=== PATIENT | female | born 1980 | race African-American/Black ===

== ENCOUNTER 2017-07-12 12:11 | Emergency (ER) | payer MEDICAID ==
[~2017-07-12] VITALS: Ht 157.5 cm; Wt 52.2 kg
[~2017-07-12 12:11] MED LIST: ACETAMINOPHEN-1 EAC1 ORAL; ZOFRAN ODT4 MG ORAL
[2017-07-12] MEDS: Ketorolac 30mg Inj IM ONE ×3 (12:25→12:37)
[2017-07-12] MEDS ORDERED: Methocarbamol 500mg tab ORAL ONE (12:30)
--- NOTE | 2017-07-12 12:30 | Emergency Room Report ---
History of Present Illness General Chief Complaint: Neck Pain Source: Patient Present Illness HPI 37-year-old female patient presents ER brought in by ambulance complaining of neck and shoulder pain. Reports pain began yesterday after waking up "feels like muscle tightness" that increases with turning her head to the left. Reports pain was initially chest in her neck and has moved to her shoulder. Reports has been able to move her arm without difficulty. Reports history of smoking marijuana and cigarettes. Denies past medical history. Denies fever, chest pain, shortness of breath. Jerald has been taking Aleve for pain with mild relief of symptoms. Reports was going to take a muscle relaxant from her boyfriend thought she should get a muscle relaxant from the ER. denies acute injury. Denies history of injury or surgery to the affected area. denies difficulty eating or drinking. Denies sore throat. Allergies: Coded Allergies: No Known Allergies (Unverified , 12/01/15) Patient History Past Medical History: see triage record Last Menstrual Period: 06/21/83 Reviewed Nursing Documentation: PMH: Agreed; PSxH: Agreed Nursing Documentation-PMH Past Medical History: No History, Except For Hx Cardiac Problems: No Hx Cancer: No Hx Neurological Problems: No Review of Systems All Other Systems: negative except mentioned in HPI Physical Exam Vital Signs Date Time Temp Pulse Resp B/P (MAP) Pulse Ox O2 Delivery O2 Flow Rate FiO2 07/12/17 12:05 98.0 107 16 106/74 99 Room Air 98.1 Sp02 EP Interpretation: reviewed, normal General Appearance: well appearing, no apparent distress, alert, GCS 15, non- toxic Head: normocephalic, atraumatic Eyes: bilateral eye normal inspection, bilateral eye PERRL ENT: hearing grossly normal, normal pharynx, no angioedema, normal voice, uvula midline, moist mucus membranes Neck: no bony tend, tender lateral Respiratory: lungs clear, normal breath sounds, no rhonchi, no respiratory distress, no accessory muscle use, no wheezing, speaking full sentences Cardiovascular #1: regular rate, rhythm, no edema Cardiovascular #2: 2+ radial (R), 2+ radial (L) Musculoskeletal: back normal, digits/nails normal, gait/station normal, normal range of motion, non-tender, other - negative Adson, NVI Neurologic: alert, oriented x3, responsive, motor strength/tone normal, sensory intact Psychiatric: mood/affect normal Skin: no rash Medical Decision Making PA Attestation Dr. Gray is my supervising Physician whom patient management has been discussed with. Diagnostic Impression: Primary Impression: Neck pain Additional Impression: Shoulder pain ER Course Pt. presents to the ED c/o neck and shoulder pain. Ddx considered but are not limited to fracture, sprain, strain, contusion, dislocation, muscle spasm, thoracic outlet syndrome. During physical exam patient talking without difficulty, moving her arm, mild movement of neck until patient begins talking about pain and stop moving neck. negative Adson's sign, low suspicion for thoracic outlet. Low suspicion for meningitis. Vital signs: are WNL, pt. is afebrile Ordered X-ray and pain medication. ER COURSE Provided with pain medication. CURES reviewed. An X-ray of the cervical neck was ordered, results show no acute fracture, per the preliminary reading. An X-ray of the right shoulder was ordered, results show no acute fracture, per the preliminary reading. patient observed with normal range of motion while in ER, patient reports able to move but painful to do so. Informed patient likely muscle spasm. Patient has no nuchal rigidity, no focal neuro deficits. Patient eating and drinking normally, talking without difficulty, informed patient may be stress component. Follow-up with PCP for further diagnosis and treatment. Reports pain mildly symptoms improved. Patient instructed on RICE method: rest, ice, compression, elevation. Instructed patient on heat for neck stiffness. Patient instructed to WBAT. Followup with primary care provider for medical clearance to return to activities. Discuss referral to ortho/pain management/PT as needed. Discuss further imaging with MRI/CT as needed. DISCHARGE: -Rx provided for Tylenol for pain symptoms. -Rx provided for Methocarbamol. SE drowsiness, do not drink, drive, or operate heavy machinery while using. -Rx provided for lidocaine patches. At this time pt. is stable for d/c to home. Patient is resting comfortably, in no acute distress, nontoxic appearing, talking without difficulty. Will provide printed patient care instructions, and any necessary prescriptions. Patient instructed to follow with primary care provider in 3 - 5 days and to request further orthopedic follow-up. Care plan and follow up instructions have been discussed with the patient prior to discharge. Take medications as directed. Patient questions asked and answered. Patient reports understanding and agreement to treatment plan. ER precautions given, patient instructed to return to ER immediately for any new or worsening of symptoms. - Please note that this Emergency Department Report was dictated using [employer] sales engineer technology software, occasionally this can lead to erroneous entry secondary to interpretation by the dictation equipment. Other X-Ray Diagnostic Results Other X-Ray Diagnostic Results #1: X-Ray ordered: right shoulder # of Views/Limited Vs Complete: 3 View Indication: Pain EP Interpretation: Yes PA Xray: Interpretation reviewed, by supervising MD, and agrees with findings. Interpretation: no dislocation, no soft tissue swelling, no fractures Impression: No acute disease PA Scribe Text Stewart Basilio PA-C Other X-Ray Diagnostic Results #2: X-Ray ordered: neck # of Views/Limited Vs Complete: 3 View Indication: Pain EP Interpretation: Yes PA Xray: Interpretation reviewed, by supervising MD, and agrees with findings. Interpretation: no dislocation, no soft tissue swelling, no fractures Impression: No acute disease PA Scribe Text Stewart Basilio PA-C Last Vital Signs Date Time Temp Pulse Resp B/P (MAP) Pulse Ox O2 Delivery O2 Flow Rate FiO2 07/12/17 12:05 98.0 107 16 106/74 99 Room Air 98.1 Disposition: HOME, SELF-CARE Condition: Stable Scripts Lidocaine (Lidocaine) 1 Each Adh..patch 700 MG TP DAILY for 7 Days, #7 PATCH Prov: Aquiles Basilio.A. 07/12/17 Acetaminophen* (TYLENOL EXTRA STRENGTH*) 500 Mg Tablet 500 MG ORAL Q8H PRN for Prn Headache/Temp > 101, #30 TAB 0 Refills Prov: Aquiles Basilio.A. 07/12/17 Methocarbamol* (ROBAXIN*) 500 Mg Tablet 500 MG PO TID, #21 TAB 0 Refills Prov: Aquiles Basilio.A. 07/12/17 Patient Instructions: Acute Torticollis, Cervical Sprain, [id number], Shoulder Pain, [id number] Additional Instructions: Patient instructed to follow up with primary care provider 3-5 and discuss further referral and MRI imaging at that time as needed. Patient instructed on rest, ice and heat. Do not take muscle relaxant prior to drinking, driving, or operating heavy machinery. Take medications as directed. Patient questions asked and answered. ER precautions given, patient instructed to return to ER immediately for any new or worsening of symptoms. Aquiles Basilio Jul 12, 2017 12:30
[2017-07-12] MEDS ORDERED: TYLENOL EXTRA500 MG ORAL (13:23)
[2017-07-12] MEDS ORDERED: LIDOCAINE700 M1 TP (13:23)
[2017-07-12] MEDS ORDERED: ROBAXIN500 MG PO (13:23)
[2017-07-12] MEDS ORDERED: Norco 5mg/325mg tab ORAL ONE (13:45)
[2017-07-12 13:49] VITALS: BP 106/74
[2017-07-12 13:51] VITALS: BP 106/74
--- NOTE | 2017-07-13 08:37 | Diagnostic Imaging Report ---
Indication: Reason For Exam: PAIN Technique: 3 views of the left shoulder Comparison: None Findings: No acute fractures or dislocations. Joint spaces are preserved. Impression: Negative
--- NOTE | 2017-07-13 08:37 | Diagnostic Imaging Report ---
Indications: Reason For Exam: PAIN Technique: 2 or 3 views of the cervical spine Comparison: none Findings: Normal alignment. No acute fractures. No dislocations. Vertebral body heights and disc spaces are preserved. No prevertebral soft tissue swelling.. Impression: No acute process
== END 2017-07-12 14:00 | disposition home or self-care (01) ==
LOC: EDBD 12:11 → EMR 13:46
DX: M54.2 Cervicalgia (principal); M25.511 Pain in right shoulder
CPT/HCPCS: 72040; 73030; 96372; 99284; J1885